=== PATIENT | female | born 1985 | race Caucasian/White ===

== ENCOUNTER 2020-01-16 19:14 | Emergency (ER) | payer OTHER, SELFPAY ==
[2020-01-16 20:09] VITALS: BP 157/98; PULSE 112; RESP 14; TEMP 36.6; O2SAT 100
[2020-01-16 20:10] VITALS: BP 150/98; PULSE 100; RESP 18; TEMP 36.6; O2SAT 100
--- NOTE | 2020-01-16 20:10 | PC.NURSE ---
patient presents with a horse flie bite to her left calf . the leg is swollen warm and red
--- NOTE | 2020-01-16 20:11 | ED.SKABFB ---
HPI - Skin/Abscess/Foreign Bdy General Stated complaint: allergic reaction to bite Source: patient Mode of arrival: ambulatory Limitations: no limitations History of Present Illness HPI narrative: this is a 34-year-old female that presents with a insect bite to the left lateral thigh that is swollen red warm and tender to touch currently there is no fever chills no shortness of breath no nausea vomiting no audible wheezing no abdominal pain no diarrhea constipation. patient had an insect bite from a apparently a horse fly causing swelling and irritation. complaint: rash Onset (ago): hour(s) Location: LLE Severity: moderate Quality: burning Relieving factors: none Exacerbating factors: none Context: other ( insect bite) Associated symptoms: itching Treatments prior to arrival: none Related Data Allergies Allergy/AdvReac Type Severity Reaction Status Date / Time ampicillin Allergy Mild Swelling Verified 01/16/20 20:17 Review of Systems Review of Systems: All systems reviewed & are unremarkable except as noted in HPI and below PMFSH Past Medical History Medical History Patient denies medical problems Exam Const: General: cooperative, healthy appearing, comfortable and no acute distress Nutritional Appearance: average body habitus and well nourished Orientation/consciousness: oriented to person, oriented to place, oriented to time and patient oriented x3 HENMT: Head: normal to inspection Ears: hearing grossly normal bilaterally Eyes: Alignment and Position: alignment normal Eyelids: eyelids normal Conjunctivae: conjunctivae normal Sclera: sclerae normal Cornea: corneas normal Neck: Neck: normal visual inspection Resp: Effort & Inspection: normal respiratory effort and able to speak in complete sentences Auscultation: clear to auscultation bilaterally Cardio: Jugular venous distension: no JVD Palpation: normal PMI GI: Inspection: normal to inspection Back/Spine/Pelvis: Back: no CVA tenderness Skin: Other: erythematous red warm and swollen rash lateral aspect of her left upper thigh Course Course Emergency Course: patient appears comfortable received IM ceftriaxone and IM Depo-Medrol. Vital Signs Vital signs: Vital Signs Temperature 36.6 C 01/16/20 20:09 Pulse Rate 112 H 01/16/20 20:09 Respiratory Rate 14 01/16/20 20:09 Blood Pressure 157/98 H 01/16/20 20:09 Pulse Oximetry 100 01/16/20 20:09 Temperature 36.6 C 01/16/20 20:09 Pulse Rate 112 H 01/16/20 20:09 Respiratory Rate 14 01/16/20 20:09 Blood Pressure 157/98 H 01/16/20 20:09 Pulse Oximetry 100 01/16/20 20:09 Critical Care Time Critical Care Time Critical Care Time: No Discharge Plan Discharge Clinical Impression: Allergic reaction Qualifiers: Encounter type: initial encounter Qualified Code(s): T78.40XA - Allergy, unspecified, initial encounter Cellulitis Qualifiers: Site of cellulitis: extremity Site of cellulitis of extremity: lower extremity Laterality: left Qualified Code(s): L03.116 - Cellulitis of left lower limb Patient Disposition: Home, Self-Care Condition: Stable Instructions: Antibiotic Form, Cellulitis (ED), Insect Bite or Sting (ED) Additional Instructions: take medicine as prescribed, follow-up with primary care persist or worsen. Prescriptions: New methylprednisolone [Medrol (Artie)] 4 mg tablets,dose pack See Rx Instructions .ROUTE .COMPLEX Qty: 21 RF: 0 sulfamethoxazole-trimethoprim [Bactrim DS] 800-160 mg tablet 1 tablet PO Q12H Qty: 20 RF: 0 Follow-up/Referrals: Stoney Ceja M.D. [Primary Care Provider] - Time of Disposition: 20:19
[2020-01-16] MEDS: cefTRIAXone 1 GM VIAL IM (20:35)
[2020-01-16] MEDS: LIDOCAINE HCL 1% LOCAL INJ 20 ML VIAL (20:37)
[2020-01-16] MEDS: methylPREDNISolone ACETATE 40 MG/ML VIAL 80 MG IM (20:37)
[2020-01-16 20:48] VITALS: BP 130/78; PULSE 89; RESP 20; TEMP 36.6; O2SAT 100
== END 2020-01-16 20:58 | disposition home or self-care (01) ==
PROVIDERS: Emergency Provider Emergency Medicine; PCP Family Medicine
DX: L03.116 Cellulitis of left lower limb (principal); T78.40XA Allergy, unspecified, initial encounter
CPT/HCPCS: 96372; 99283; 99284; J0696; J1030